=== PATIENT | male | born 1950 | race Caucasian/White ===

== ENCOUNTER 2023-04-30 14:47 | Emergency (ER) | payer MEDICARE | END 2023-04-30 16:39 | disposition left against medical advice (07) | LOC: CSHERS 14:47 | DX: Z53.21 Procedure and treatment not carried out due to patient leaving prior to being seen by health care provider (principal) ==

== ENCOUNTER 2024-03-06 13:16 | Emergency (ER) | payer MEDICARE ==
[2024-03-06 14:23] LABS: #Basophils 0.04 10x3/uL (0.0-0.2); #Eosinphils 1.11 10x3/uL (0.0-0.5); #Monocytes 0.55 10x3/uL (0.0-1.1); #Neutrophils 7.43 10x3/uL (1.5-8.4); %Basophils 0.4 % (0.0-2.0); %Eosinophils 10.7 % (0.0-6.0); %Lymphocytes 11.2 % (18.0-47.0); %Monocytes 5.3 % (0.0-10.0); %Neutrophils 71.8 % (40.0-75.0); Hematocrit 48.5 % (38.8-50.0); Hemoglobin 15.9 g/dL (13.5-17.5); Mean Corpuscular HGB CONC 32.8 g/dL (32.0-36.0); Mean Corpuscular Hemoglobin 29.8 pg (27.0-33.0); Mean Corpuscular Volume 90.8 fL (81.2-95.1); Platelet Count 236 10x3/uL (150-450); RBC Distribution Width 13.4 % (11.5-14.5); Red Blood Cell (RBC) Count 5.34 10x6/uL (4.32-5.72); White Blood Cell (WBC) Count 10.4 10x3/uL (3.5-10.5)
[2024-03-06 14:39] LABS: Anion Gap 14 mmol/L (10-20); BUN (Urea Nitrogen) 13 mg/dL (8.4-25.7); Calc. Creatinine Clearance 0 mL/min (70-130); Calcium 9.5 mg/dL (7.8-10.44); Carbon Dioxide 22 mmol/L (23-31); Chloride 107 mmol/L (98-107); Estimated GFR 58; Glucose 203 mg/dL (83-110); Potassium 4.6 mmol/L (3.5-5.1); Sodium 138 mmol/L (136-145)
[2024-03-06 15:23] LABS: Bilirubin Neg (Negative); Blood, Urine Negative (Negative); Clarity Clear (Clear); Glucose, Urine (Dipstick) >=1000 mg/dL (Negative); Ketone, Urine Negative (Negative); Leukocyte Negative (Negative); Nitrite Negative (Negative); Protein, Urine (Dipstick) Negative (Neg-Trace); Specific Gravity, Urine 1.015 (1.005-1.030)
[2024-03-06] MEDS ORDERED: Hydrocortisone 1% Cream 30 GM TUBE TOP SCH (16:15)
[2024-03-06 16:36] LABS: CAUTI Indications for Culture Pelvic or flank pain; RBC/HPF 0-3 HPF (0-3); WBC/HPF 0-3 HPF (0-3)
[2024-03-06 16:38] LABS: Squamous Epithelial 0-3 HPF (0-3)
[2024-03-06 16:41] LABS: Bacteria/HPF Rare-Few HPF (None Seen)
[2024-03-06 16:42] LABS: Urine Culture Reflex No No
== END 2024-03-06 16:22 | disposition home or self-care (01) ==
LOC: CSHERS 13:16
DX: D72.10 Eosinophilia, unspecified (principal); E11.9 Type 2 diabetes mellitus without complications
CPT/HCPCS: 80048; 81001; 85025; 99283